=== PATIENT | male | born 1960 | race Caucasian/White ===

== ENCOUNTER 2024-12-06 08:37 | Outpatient (OUT) | payer BC, SELFPAY ==
--- NOTE | 2024-12-06 08:50 | ECG_ITS ---
[facility] Test Date: 2024-12-06 Pat Name: PASCUAL ERAZO Department: Room: - Gender: Male [facility]: : 1960 Requested By: [id number] Order Number: [id number] Reading MD: TORRES RINALDI Measurements Intervals [place] Rate: 68 P: 55 [place]: 153 QRS: 50 QRSD: 100 T: 24 QT: 379 QTc: 404 Interpretive Statements SINUS RHYTHM No previous ECG available for comparison Electronically Signed On 12-06-2024 13:59:00 EDT by TORRES RINALDI
== END 2024-12-06 08:38 | disposition home or self-care (01) ==
PROVIDERS: PCP Nurse Practitioner Family; Visit Provider Nurse Practitioner Family
DX: Z13.89 Encounter for screening for other disorder (principal)
CPT/HCPCS: 93005